=== PATIENT | male | born 1955 | race Caucasian/White ===

== ENCOUNTER 2018-11-30 14:30 | Outpatient (CLI) ==
[2017-05-03 11:22] VITALS: BMI 29.0
--- NOTE | 2018-11-30 14:56 | DI ---
EXAM: CHEST FRONTAL AND LATERAL VIEWS HISTORY: Cough, wheezing and fever. COMPARISON: None FINDINGS: Normal heart size. Diffuse nodular interstitial pattern with discoid regions of density i n the mid lungs bilaterally. There is no vascular congestion, pleural fluid or pneumothorax IMPRESSION: 1. Abnormal appearance of the lungs suggesting probable pneumonia given the patient's history. Unde rlying pathology cannot be excluded and follow-up chest imaging is recommended.
== END 2018-11-30 14:31 | disposition home or self-care (01) ==
LOC: LAB 14:30
PROVIDERS: ATTEND Internal Medicine
DX: R50.9 Fever, unspecified (principal); R05 Cough; R06.2 Wheezing
CPT/HCPCS: 36415; 80048; 85025; 87502

== ENCOUNTER 2019-04-28 09:00 | Outpatient (RCR) | payer OTHER ==
[2017-05-03 11:22] VITALS: BMI 29.0
--- NOTE | 2019-04-27 13:39 | RS.OPPTEV2 ---
Date of Note: 04/27/19 Visit #: 1 Number of visits approved by Insurance: NA Date of Evaluation: 04/27/19 Payer Source: Insurance Treatment Diagnosis: Low back pain History of Condition/Mechanism of Injury:: Mr. Ordonez states onset of back and left leg pain was at least a month ago. Reports no injury. Prior Level of Function.....Patient was independent with: ADL's, Self Care, Work /Vocation, Caregiving, Ambulation/Mobility, Community Integration/Access Functional Limitations: Sleep, ADL's, Reaching, Pushing, Pulling, Lifting, Carrying, Sitting, Bending Current Subjective/complaints:: Mr. Ordonez reports left LE pain, mostly into the hip and knee. States he cannot get comfortable. He has tried heat and ice , but has only gotten temporary benefit. He received a steroid injection, which helped for about one day, and then the pain returned. 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 States he sits in the middle of the front seat with his left leg extended to work the gas and brake pedals and reaches out the passenger window with the right arm. He has not worked this week. States he wakes up in the morning with stiffness, but as he walks around it gets better. He has gotten some relief of left LE pain with lying on his stomach. Treatment Side (optional): Left Medical History Medical History: Hypertension Smoking Status: Never smoker Diagnostic Testing/Imaging:: MRI of lumbar spine w/o contrast: Impression: "Degenerative changes at several lumbar levels. Findings appear most significant at L4-5, where there is a left-sided disc herniation with spinal stenosis and nerve root impingement." Hx Home Medications: Amlodipine/Olmesartan, Symbicort, Aspirin, Hydrocodone/ Acetaminophen 7.5 Patient's Goals: His goal is to get relief of left LE pain. Pain Assessment - Pain Description Pain Location: Left LE, mostly hip and knee Pain Description: Radiating, Aching Current Pain Intensity: 5/10 Worst Pain Intensity: 8/10 Functional Outcome Measure Oswestry LBP: 38 - G Codes & Severity Modifier G Codes & Modifier: NA Source of G Code score: NA Observation - Observation Posture: Forward Head Gait - Gait Pattern Gait Comments: Patient ambulates independently without an assistive device. His first few steps after standing up from a chair are a little guarded, but then he ambulates without any significant gait deviations. - ROM Comments: Lumbar flexion reproduces pain into left hip. Lumbar extension is WFL 's with slight discomfort in the low back, but states it is not a reproduction of his pain. Bilateral LE AROM is WFL's. - Strength Comments: 5/5 throughout bilateral LE's. - Special Tests ILENE Test: Negative Left, Negative Right SLR Test: Negative Right, Positive Left Seated Dural Stretch Test: Negative Right, Positive Left SI Joint Compression: Negative Palpation Comments:: Reports slight tenderness with palpation to the superior gluteal musculature of the left side. No tenderness reported with Central PA's to the lumbar vertebrae or with palpation to the lumbar paraspinals. Denies tenderness with palpation to either SI joint. Sensation - Sensation Right Lower Extremity: Intact/Normal Left Lower Extremity: Intact/Normal Interventions - Exercise/Activities/Manual Therapy Exercises/Activities: Patient was able to lay in prone without pain. VILLA also was pain-free. Prone press up with elbows extended did cause some discomfort into the left buttock region. Patient instructed in VILLA for 10-15 mins, 3 times a day or more. Also instructed in standing lumbar extension and standing alternating hip extension following any sitting. Advised patient to avoid sitting any longer than 20 minutes at a time. Manual Therapy: NA HOME EXERCISE PROGRAM: VILLA, standing lumbar extension, standing hip extension. - Charges Timed Code Treatment Minutes: 0 mins Total Treatment Time: 50 mins Procedures billed for this date of service:: EVAL Low EVALUATION COMPLEXITY LEVEL EVALUATION COMPLEXITY LEVEL: HISTORY: Low (HTN), EXAM OF BODY SYSTEMS: Low, CLINICAL PRESENTATION: Low, CLINICAL DECISION MAKING: Low Assessment Assessment: Mr. Ordonez presents to therapy today with a diagnosis of low back pain. He reports more pain in the left LE. Demonstrates a positive SLR in sitting and supine. He gets some relief of symptoms with walking and prone lying. Reports difficulty with work and home activities due to left low back and LE symptoms. His symptoms are consistent with disc involvement. He shows good potential to benefit from lumbar extension exercises and then progressed strengthening/stability and education to prevent future symptoms. Patient Education: Education of diagnosis, Body/Joint mechanics, Home Exercise Program, Home Safety, Activity Modification, Education of Plan of Care Rehab Potential: Good Short Term Goals Goal #1: Patient independent and compliant with HEP. Goal to be met by: 05/11/19 Goal #2: Left LE symptoms localized to the left hip. Goal to be met by: 05/11/19 Goal #3: Pt demo understanding of proper body mechanics and back safety. 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 Goal to be met by: 06/11/19 Goal #2: Score on Oswestry LBP scale improved to 18. Goal to be met by: 06/11/19 Goal #3: Patient able to perform all ADL's without difficulty or pain. Goal to be met by: 06/11/19 Goal #4: Patient able to perform all work duties without back or LLE symptoms. Goal to be met by: 06/11/19 Plan - Treatment to be Provided Procedures: Therapeutic Exercises, Therapeutic Activity, Manual Therapy, Patient Education Modalities: Electrical Stimulation, Ultrasound/Phonophoresis, Class IV Laser, Cryotherapy, Hot Packs, Mechanical Traction (lumbar) - Treatment Plan Frequency: 2 X week Duration: 6 weeks Dates of Mcfp Goals: 06/11/19 Expiration date of current Insurance Approval:: NA - Treatment Code (1) Low back pain Code(s): M54.5 - LOW BACK PAIN Qualifiers: Chronicity: acute Back pain laterality: left Sciatica presence: unspecified whether sciatica present Qualified Code(s): M54.5 - Low back pain (2) Lumbar radiculopathy Code(s): M54.16 - RADICULOPATHY, LUMBAR REGION Comments: M54.16
--- NOTE | 2019-04-28 11:26 | RS.OPPTDN ---
Subjective Date of Note: 04/28/19 Visit #: 2 Number of visits approved by Insurance: [id number] Date of Evaluation: 04/27/19 Payer Source: Insurance Treatment Diagnosis: Low back pain Current Subjective/complaints:: Patient says his pain is 6/10 avg fairly constantly to the L lower back and L hip. States he also has pain at the L lateral knee. States he has tried VILLA a few times yesterday, which relieved his symptoms. He says he has been off this week from work and has plenty of time to take off more if needed. He will return to the MD Wednesday. - Treatment Modality: Electrical Stim Unattended Parameters/Method Applied: Hivolt 2 large pads at the L lumbar paraspinals and L superior glut @ 125 pk volts. 2 large pads at the R lumbar paraspinals @ 95 pk volts x 22 mins Patient Position: Prone - Heat/Cryotherapy Treatment: Cryotherapy (over the L LB and glut with estim) Interventions - Exercise/Activities/Manual Therapy Exercises/Activities: Patient lays prone for modalities and education approx 25 mins. VILLA x 5 mins while reviewing HEP, discussing TENS unit per pt inquiry and anatomy/education of extension theory and localization of pain. Discussed estim and benefits. Total minutes of Exercise: 17 Manual Therapy: NA HOME EXERCISE PROGRAM: VILLA, standing lumbar extension, standing hip extension. - Charges Timed Code Treatment Minutes: 17 Total Treatment Time: 39 Procedures billed for this date of service:: cp, estim (un) Assessment: Patient responding to treatment of extension exercises as he experiences little to no pain once prone and with VILLA. Patient is performing these and standing extension at home often revealing decreased to abolishment of pain. Pain is mostly constant and staying in the L lower lumbar and glut region. Slight soreness extending over to the R lumbar occasionally. He admits only slight discomfort today with departing treatment and hopeful to further progress with estim and therex for extension and then strengthening trunk/mid back. Patient is looking into using a borrowed TENS unit to ease symptoms if he returns to work next week. Patient Education: Education of diagnosis, Body/Joint mechanics, Home Exercise Program, Education of Plan of Care Patient demonstrates compliance with HEP?: Yes Short Term Goals Goal #1: Patient independent and compliant with HEP. Goal to be met by: 05/11/19 Progress towards Goal:: Progressing Goal #2: Left LE symptoms localized to the left hip. Goal to be met by: 05/11/19 Goal #3: Pt demo understanding of proper body mechanics and back safety. 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 Goal to be met by: 06/11/19 Goal #2: Score on Oswestry LBP scale improved to 18. Goal to be met by: 06/11/19 Goal #3: Patient able to perform all ADL's without difficulty or pain. Goal to be met by: 06/11/19 Goal #4: Patient able to perform all work duties without back or LLE symptoms. Goal to be met by: 06/11/19 Plan Dates of Care Home Goals: 06/11/19 Expiration date of current Insurance Approval:: 06/11/19 PLAN: Patient to continue with modalities and therex consisting of Eusebio Extension and progress to trunk strengthening.
== END 2019-04-28 23:59 ==
PROVIDERS: ATTEND Physician Assistant Surgical
DX: M54.5 Low back pain (principal)